=== PATIENT | female | born 1945 | race Caucasian/White ===

== ENCOUNTER 2023-02-08 09:17 | Emergency (ER) | payer MEDICARE, OTHER, SELFPAY ==
[2023-02-08] VITALS (8 sets, daily range): BP systolic 138–170; BP diastolic 65–112; PULSE 67–114; RESP 15–23; TEMP 36.4; O2SAT 94–96
--- NOTE | 2023-02-08 09:30 | DI.RAD_ITS ---
Exam(s) XR CHEST 2V PA LATERAL EXAM: XR CHEST 2V PA LATERAL CLINICAL HISTORY: Cough, URi symptoms TECHNIQUE: 2D digital imaging was performed of the chest. Two images were obtained. PA and lateral views were obtained. COMPARISON: No exams were available for comparison FINDINGS: MEDIASTINUM: Normal. HEART: Normal. PULMONARY VASCULATURE: Normal. LUNGS: There is an ovoid opacity adjacent to the left hilum. The lungs are otherwise clear. PLEURAL SPACE: No pleural effusion or pneumothorax. BONE:Within normal limits for the patient's age. OTHER FINDINGS:Normal. IMPRESSION: 1. Nodular opacity adjacent to the left hilum. Pulmonary nodule/mass cannot be excluded. A CT scan of the chest is recommended for further evaluation. 2. Otherwise unremarkable chest x-ray. DATA REPOSITORY: RADIATION DOSE DELIVERED:
--- NOTE | 2023-02-08 09:30 | RT.EKG_ITS ---
APPROVED REPORT Exam: Resting ECG Reason for Exam: Chest Heaviness Patient Location: E HR:78 bpm ECG Measurements Heart Rate 78 AXIS TX 216 P -29 QRSd 82 QRS 28 QT 402 T 0 QTc 459 Conclusion Sinus rhythm...normal P axis, V-rate 60- 99 Borderline prolonged TX interval...TX >212, V-rate 50- 90 Probable left atrial enlargement...P >50mS, <-0.10mV V1 Borderline repol abnormality, diffuse leads...ST dep, T flat/neg, ant/lat/inf sinus rhyhtm, normal axis, consider inferior lateral ST depressions
--- NOTE | 2023-02-08 09:37 | ED.GENADUL_ITS ---
Discharge Plan Disposition Patient Disposition: Home Condition: Stable Discharge Details Clinical Impression: URI (upper respiratory infection) Primary Care Provider: Unknown,Unknown ED Provider: Christina Leos Home Meds and New Rx's Prescriptions: New doxycycline hyclate 100 mg tablet 100 mg PO BID 5 Days Qty: 10 0RF benzonatate 100 mg capsule 100 mg PO TID PRN (Reason: cough) Qty: 14 0RF Rx Instructions: Take 1 capsule up to 3 times daily as needed for cough No Action simvastatin 10 mg Tablet 10 mg PO Q OTHER DAY candesartan 16 mg Tablet 16 mg PO DAILY Discharge Instructions Instructions: Upper Respiratory Infection (ED) Additional Instructions: Please take the antibiotic as directed with yogurt or a probiotic. The Tessalon Perles as directed. Follow up with primary care provider in 3-5 days. Return to ED sooner if any worsening or concerns. Increase oral fluids. Use your previously prescribed albuterol inhaler as prescribed 1 or 2 puffs 2-3 times a day as needed for wheezing and congestion. Discharge Data Discharge Date/Time-TO BE ENTERED AT DEPARTURE: 02/08/23 12:51 Medical Decision Making 77-year-old female presents to the ER with a chief complaint of URI type symptoms which have been worsening over the last few weeks. She is from out of town staying at [facility]. She reports began with a sinus infection now she is having left lung pain coughing up mucous. She describes it as heaviness. Denies any fever or chills. She reports she is having a hard time sleeping. Feeling more run down every day. Chest x-ray rapid COVID and EKG ordered. Differential diagnosis includes but not limited to URI, COVID, sinusitis, CAD. Patient denies any history of heart problems. No nausea vomiting diaphoresis. EKG was reviewed by Dr. Dereck Mistry and myself ER attending, some artifact noted on the initial EKG repeat ordered. Borderline repolarization abnormality in the diffusely with some minor ST depressions in the anterior lateral and inferior leads. IV and troponins ordered. 0959: Repeat EKG is improved, there is some repolarization and slight ST depressions please see report. Questionable left upper lobe pneumonia on imaging. Official imaging report is pending at this time. Doxycycline 100 mg p.o. ordered. Initial troponin within normal limits. Second troponin canceled due to length of symptoms. Patient states that she had does have a history of breast cancer and had radiation therapy noted to her left side. She is scheduled for a CT in April with her PCP. Questionable pneumonia versus scar tissue. I will treat her with doxycycline to treat empirically for sinusitis and URI type symptoms and Tessalon Perles pending x-ray result. Discussed home care with patient verbalized understanding. Patient discharged in hemodynamically stable condition. This text was generated using [employer] system, please disregard any oddities of phrase or misspellings. 1656: Patient called after discharge, to discuss XR results, She does have a kitchen lead in [place]. I explained to her the results and that a CT is recommended. She verbalized understanding. She will call her kitchen lead tomorrow. A disc of the CXR was requested to be made in DI for patient. Imaging Data Radiologic Study: Imaging: X-Ray Radiologist's impression: EXAM: XR CHEST 2V PA LATERAL CLINICAL HISTORY: Cough, URi symptoms TECHNIQUE: 2D digital imaging was performed of the chest. Two images were obtained. PA and lateral views were obtained. COMPARISON: No exams were available for comparison FINDINGS: MEDIASTINUM: Normal. HEART: Normal. PULMONARY VASCULATURE: Normal. LUNGS: There is an ovoid opacity adjacent to the left hilum. The lungs are otherwise clear. PLEURAL SPACE: No pleural effusion or pneumothorax. BONE:Within normal limits for the patient's age. OTHER FINDINGS:Normal. IMPRESSION: 1. Nodular opacity adjacent to the left hilum. Pulmonary nodule/mass cannot be excluded. A CT scan of the chest is recommended for further evaluation. 2. Otherwise unremarkable chest x-ray. Lab Data Lab results reviewed: Yes I reviewed the patient's lab results. Labs: Laboratory Tests Range/Units 02/08/23 02/08/23 02/08/23 10:10 10:20 12:51 Troponin I (<or=60) ng/L < 50 Cancelled COVID-19 Source Nasal/Nares SARS-CoV-2 (PCR) (Negative) Negative HPI General Mode of arrival: ambulatory . Date/Time Provider Initiated Documentation: 02/08/23 09:19 . Limitations to Documentation: no limitations . Information obtained by: patient and RN notes reviewed . HPI Narrative: 77-year-old female presents to the ER with a chief complaint of URI type symptoms which have been worsening over the last few weeks. She is from out of town staying at [facility]. She reports began with a sinus infection now she is having left lung pain coughing up mucous. She describes it as heaviness. Denies any fever or chills. She reports she is having a hard time sleeping. Feeling more run down every day. Related Data Home Medications Medication Instructions Recorded Confirmed benzonatate 100 mg capsule 100 mg PO TID PRN cough #14 caps 02/08/23 candesartan 16 mg tablet 16 mg PO DAILY 02/08/23 02/08/23 doxycycline hyclate 100 mg tablet 100 mg PO BID 5 days #10 tabs 02/08/23 simvastatin 10 mg tablet 10 mg PO Q OTHER DAY 02/08/23 02/08/23 Previous Rx's Medication Instructions Recorded benzonatate 100 mg capsule 100 mg PO TID PRN cough #14 caps 02/08/23 doxycycline hyclate 100 mg tablet 100 mg PO BID 5 days #10 tabs 02/08/23 Allergies Allergy/AdvReac Type Severity Reaction Status Date / Time latex AdvReac Severe Itching Unverified 02/08/23 09:28 levofloxacin [From Levaquin] AdvReac Severe Hives Unverified 02/08/23 09:28 General Stated Complaint: GenMedical ELIOT: 3 PFSH All Active Problems (Updated 02/08/23 @ 12:31 by Christina Leos NP) URI (upper respiratory infection) (Acute) Social History Smoking/Tobacco Use Status: Never Smoking risk assessment performed?: Yes Alcohol Intake: never Drug use: Never Substance use type: does not use Do you feel safe at home: Yes Do you feel safe in your relationship?: Yes Exam Narrative Exam Narrative: Constitutional: Alert and oriented x3. Appears stated age. Normal body habitus. Head: Normocephalic, no trauma. Eyes: Pupils PERRL, Red reflex noted, EOM's intact. Eyelids symmetrical without lesions, discharge, or swelling. ENT: Bilateral TM's WNL, External ear normal to inspection, no mastoid TTP, swelling, or erythema, Nasal turbinates WNL, no nasal discharge. Normal dentition, Posterior pharynx WNL, no exudate. Chest: RRR, Normal S1, S2, distal pulses intact. Resp: Lungs clear to auscultation bilaterally, no wheezes, rales, or rhonchi. Abdomen: Soft, non-distended, Normoactive bowel sounds all 4 quads. Musculoskeletal: Normal gait, 5/5 strength to all four extremities. Skin: No suspicious rashes or lesions. Capillary refill less than 2 sec. Neurologic: Cranial nerves II-XII intact. Alert and oriented x 3. Motor: No deficits noted. Sensory: Intact bilaterally all 4 extremities. Hematologic/Lymphatic: No ecchymosis, no lymphadenopathy. Course Vital Signs Vital signs: Vital Signs Temperature 36.4 C 02/08/23 09:24 Pulse 92 H 02/08/23 09:24 Respiratory Rate 18 02/08/23 09:24 Blood Pressure 170/65 H 02/08/23 09:24 Pulse Oximetry 96 02/08/23 09:24 Temperature 36.4 C 02/08/23 09:24 Temperature Source Oral 02/08/23 09:24 Pulse 92 H 02/08/23 09:24 Respiratory Rate 18 02/08/23 09:24 Respiratory Effort Normal 02/08/23 09:31 Blood Pressure 170/65 H 02/08/23 09:24 Blood Pressure Position Sitting 02/08/23 09:24 Pulse Oximetry 96 02/08/23 09:24 Oxygen Delivery Method Room Air 02/08/23 09:24 Oxygen Flow Rate 0 02/08/23 09:24 Pain Level 0 02/08/23 09:24
--- NOTE | 2023-02-08 09:45 | RT.EKG_ITS ---
APPROVED REPORT Exam: Resting ECG Reason for Exam: Repeat, Chest heaviness Patient Location: E HR:80 bpm ECG Measurements Heart Rate 80 AXIS AL 205 P -63 QRSd 84 QRS 22 QT 372 T 4 QTc 430 Conclusion Sinus or ectopic atrial rhythm...P axis (-45,135) Probable left atrial enlargement...P >50mS, <-0.10mV V1 normal sinus rhythm, normal axis
[2023-02-08 10:27] LABS: Source Nasal/Nares
--- NOTE | 2023-02-08 10:27 | NUR.NOTE ---
Nursing Note: Pt in bed and comfortable at time of report. Vital signs updated. Pt understands next steps of care. Call light within reach.
[2023-02-08 10:44] LABS: Troponin I < 50 ng/L (<or=60)
[2023-02-08 10:58] LABS: COVID-19 PCR Negative (Negative)
[2023-02-08] MEDS: Benzonatate 100 MG CAP PO ×2 (12:50)
[2023-02-08] MEDS: Doxycycline Hyclate 100 MG CAP PO (12:51)
[2023-02-08] MEDS: Doxycycline Hyclate 100 MG, 2 CAPS/BTL PO (12:51)
== END 2023-02-08 12:51 | disposition home or self-care (01) ==
PROVIDERS: Emergency Provider Registered Nurse Emergency
DX: J06.9 Acute upper respiratory infection, unspecified (principal); R94.31 Abnormal electrocardiogram [ECG] [EKG]; Z20.822 Contact with and (suspected) exposure to COVID-19
CPT/HCPCS: 87635; 93005; 99284; 71046; 84484; 93010; 99283

== ENCOUNTER 2023-02-20 03:03 | Outpatient (CLI) | payer MEDICARE, OTHER, SELFPAY ==
--- NOTE | 2023-02-20 13:35 | DI.CT_ITS ---
Exam(s) CT CHEST WO EXAM: CT CHEST WO CLINICAL HISTORY: LUNG NODULE R91.1 ? [place] MASS, SEE ORDER TECHNIQUE: Imaging Protocol: Axial computed tomography images with coronal and sagittal reformatted images were created and reviewed CONTRAST MATERIAL: Noncontrast COMPARISON: CR XR CHEST 2V PA LATERAL from 02/08/2023 FINDINGS: Pulmonary parenchyma: Discrete mass is identified. There is a which shaved area of consolidation in t he medial lingula. The bronchus to this region of appears occluded. The adjacent bronchus to the late ral segment shows mild bronchiectasis. An additional similar appearing area of atelectasis size noted in the inferior left lower lobe. Bronchiectasis is noted in this region. There are no significant em physematous changes. There are mild peripheral fibrotic changes. Mediastinum and Imelda: No dominant adenopathy or fluid collection. Pleura: No effusion or pneumothorax. Heart: The heart is not dilated. No coronary artery calcifications are seen. Aorta: Thoracic aorta non-dilated. Mild atherosclerotic changes. Upper abdomen: Atrophic pancreas. Bones: Degenerative changes in the spine. Soft tissues: Surgical clips lateral left breast. IMPRESSION: Exam somewhat limited without IV contrast. Areas of atelectasis in the lingula and left lower lobe. This could be secondary to mucous plugging i n areas of bronchiectasis. Bronchoscopy could be considered for further evaluation to exclude an obstructing mass. RADIATION DOSE DELIVERED: 455.57mGy.cm Total DLP DATA REPOSITORY: All CT scans at this facility are submitted to the National Radiology Data Registry (NRDR) Dose Index Registry (DIR) with the [employer] (ACR). RADIATION OPTIMIZATION: All CT scans at this facility use at least one of these dose optimization te chniques: automated exposure control; mA and/or kV adjustment per patient size (includes targeted exa ms where dose is matched to clinical indication); or iterative reconstruction.
== END 2023-02-20 03:23 ==
LOC: DI 03:07
DX: R91.8 Other nonspecific abnormal finding of lung field (principal)
CPT/HCPCS: 71250

== ENCOUNTER 2023-03-05 18:45 | Outpatient (REF) | payer MEDICARE, OTHER, SELFPAY | END 2023-03-05 18:46 | disposition home or self-care (01) | LOC: LBN 18:45 | PROVIDERS: Visit Provider Nurse Practitioner Family | DX: N30.01 Acute cystitis with hematuria (principal); R82.79 Other abnormal findings on microbiological examination of urine | CPT/HCPCS: 87077; 87086; 87186 ==

== ENCOUNTER 2023-03-13 21:24 | Outpatient (REF) | payer MEDICARE, OTHER, SELFPAY ==
[2023-03-13 22:15] LABS: Bacteria Negative HPF (Negative); C & S Indicated? C&S Done As Ordered; Crystals Negative HPF (Negative); Epithelial Cells Rare HPF (Negative); Mucus Negative (Negative); WBC 20-50 HPF (0-5)
== END 2023-03-13 21:25 | disposition home or self-care (01) ==
LOC: LBN 21:24
PROVIDERS: Visit Provider Nurse Practitioner Family
DX: R30.0 Dysuria (principal)
CPT/HCPCS: 81015; 87086

== ENCOUNTER 2024-03-29 10:08 | Emergency (ER) | payer MEDICARE, OTHER, SELFPAY ==
--- NOTE | 2024-03-29 10:15 | DI.RAD_ITS ---
Exam(s) XR CHEST 2V PA LATERAL EXAM: XR CHEST 2V PA LATERAL CLINICAL HISTORY: URI symptoms TECHNIQUE: 2D digital imaging was performed of the chest. Two images were obtained. PA and lateral views were obtained. COMPARISON: CR XR CHEST 2V PA LATERAL from 02/08/2023 FINDINGS: MEDIASTINUM: Normal. HEART: Normal. PULMONARY VASCULATURE: Normal. LUNGS: No focal consolidation. PLEURAL SPACE: No pleural effusion or pneumothorax. BONE:Within normal limits for the patient's age. OTHER FINDINGS:Normal. IMPRESSION: No acute pulmonary findings. DATA REPOSITORY: RADIATION DOSE DELIVERED:
[2024-03-29 10:16] VITALS: BP 116/82; PULSE 106; RESP 16; TEMP 37.2; O2SAT 94
--- NOTE | 2024-03-29 10:33 | ED.GENADUL_ITS ---
Discharge Plan Disposition Patient Disposition: Home Condition: Stable Discharge Details Clinical Impression: Cough Primary Care Provider: Natasha,Local ED Provider: Christina Leos Home Meds and New Rx's Prescriptions: Continued simvastatin 10 mg Tablet 10 mg PO Q OTHER DAY candesartan 16 mg Tablet 16 mg PO DAILY benzonatate 100 mg capsule 100 mg PO TID PRN (Reason: cough) Qty: 14 0RF Rx Instructions: Take 1 capsule up to 3 times daily as needed for cough Discharge Instructions Instructions: Cough, Adult ED, Upper respiratory infection in adults - Discharge instructions Additional Instructions: No evidence of pneumonia on the chest x-ray. COVID flu and RSV is negative at this time. Please take Tessalon Perles as directed. Follow up with primary care provider in 3-5 days. Return to ED sooner if any worsening or concerns. Please take Tylenol or Ibuprofen with food every 4-6 hours as needed for pain and swelling. Referrals: Primary Care Provider [Outside] - 5 days HPI General Mode of arrival: ambulatory . Date/Time Provider Initiated Documentation: 03/29/24 10:13 . Limitations to Documentation: no limitations . Information obtained by: patient, RN notes reviewed and old records reviewed . HPI Narrative: 78-year-old female presents to the ER with a chief complaint of runny nose, head pressure and chest congestion. Reports a nonproductive cough. There has been was recently diagnosed with pneumonia and she is here to be evaluated for the same. She is speaking in full sentences, no increased work of breathing. Vital signs are within normal limits. She does have a past medical history of high cholesterol. Related Data Home Medications ?Medication ?Instructions ?Recorded ?Confirmed benzonatate 100 mg capsule 100 mg PO TID PRN cough #14 caps 02/08/23 candesartan 16 mg tablet 16 mg PO DAILY 02/08/23 02/08/23 simvastatin 10 mg tablet 10 mg PO Q OTHER DAY 02/08/23 02/08/23 Previous Rx's ?Medication ?Instructions ?Recorded benzonatate 100 mg capsule 100 mg PO TID PRN cough #14 caps 02/08/23 Allergies Allergy/AdvReac Type Severity Reaction Status Date / Time latex AdvReac Severe Itching Unverified 02/08/23 09:28 levofloxacin (From Levaquin) AdvReac Severe Hives Unverified 02/08/23 09:28 General Stated Complaint: RespSymp ELIOT: 3 Review of Systems All systems reviewed & are unremarkable except as noted in HPI and below Constitutional Constitutional: Reports headache(s) ENT Ears, Nose, Mouth, and Throat: Reports headache(s) Respiratory Respiratory: Reports as per HPI, Reports chest congestion and Reports cough Neurologic Neurologic: Reports headache(s) Exam Narrative Exam Narrative: Constitutional: Alert and oriented x3. Appears stated age. Normal body habitus. Head: Normocephalic, no trauma. Eyes: Pupils PERRL, Red reflex noted, EOM's intact. Eyelids symmetrical without lesions, discharge, or swelling. ENT: Bilateral TM's WNL, External ear normal to inspection, no mastoid TTP, swelling, or erythema, Nasal turbinates WNL, no nasal discharge. Normal dentition, Posterior pharynx WNL, no exudate. Chest: RRR, Normal S1, S2, distal pulses intact. Resp: Lungs clear to auscultation bilaterally, no wheezes, rales, or rhonchi. Abdomen: Soft, non-distended, Normoactive bowel sounds all 4 quads. Musculoskeletal: Normal gait, Moves all 4 extremities without difficulty. Skin: No suspicious rashes or lesions. Capillary refill less than 2 sec. Neurologic: Cranial nerves II-XII intact. Alert and oriented x 3. Motor: No deficits noted. Sensory: Intact bilaterally all 4 extremities. Hematologic/Lymphatic: No ecchymosis, no lymphadenopathy. Course Vital Signs Vital signs: Vital Signs Temperature 37.2 C 03/29/24 10:16 Pulse 106 H 03/29/24 10:16 Respiratory Rate 16 03/29/24 10:16 Blood Pressure 116/82 03/29/24 10:16 Pulse Oximetry 94 03/29/24 10:16 Temperature 37.2 C 03/29/24 10:16 Temperature Source Tympanic 03/29/24 10:16 Pulse 106 H 03/29/24 10:16 Respiratory Rate 16 03/29/24 10:16 Respiratory Effort Normal 03/29/24 10:18 Blood Pressure 116/82 03/29/24 10:16 Pulse Oximetry 94 03/29/24 10:16 Pain Level 0 03/29/24 10:16 Medical Decision Making 78-year-old female presents to the ER with a chief complaint of runny nose, head pressure and chest congestion. Reports a nonproductive cough. There has been was recently diagnosed with pneumonia and she is here to be evaluated for the same. She is speaking in full sentences, no increased work of breathing. Vital signs are within normal limits. She does have a past medical history of high cholesterol. Differential diagnose includes not limited to pneumonia, viral illness, influenza, COVID, seasonal allergies. Fluid swab ordered, chest x-ray. Negative Covid, Flu, RSV. XRAY negative. Patient to be discharged home with Jethro Hooks. Will instruct follow-up care for reevaluation at a later date by PCP. Patient remained hemodynamically stable throughout the remainder of her stay. This text was generated using [employer] dictation system, please disregard any oddities of phrase or misspellings. Medical Records Medical records reviewed: Yes I reviewed the patient's medical records. Imaging Data Radiologic Study: Imaging: X-Ray Radiologist's impression: FINDINGS: Lungs: Lingular scarring. No acute consolidation Pleural spaces: Unremarkable. No pleural effusion. No pneumothorax. Heart/Mediastinum: Unremarkable. No cardiomegaly. Bones/joints: Unremarkable. Soft tissues: Surgical clips left breast. Calcification right breast IMPRESSION: No evidence of acute process Thank you for allowing us to participate in the care of your patient. Dictated and Authenticated by: Almita Marroquin MD Quality:SDOH Health Related Social Needs: No Data to Display [facility] All Active Problems (Updated 03/29/24 @ 11:57 by Christina Leos NP) Cough (Acute) Social History Smoking/Tobacco Use Status: Never Smoking risk assessment performed?: Yes Alcohol Intake: never Drug use: Never Substance use type: does not use Do you feel safe at home: Yes Do you feel safe in your relationship?: Yes
[2024-03-29 11:17] LABS: COVID-19 PCR Negative (Negative); Influenza A PCR Negative (Negative); Influenza B PCR Negative (Negative); RSV PCR Negative (Negative); Source Nasopharynx
--- NOTE | 2024-03-29 11:52 | DI.VRAD_ITS ---
PROCEDURE INFORMATION: Exam: XR Chest Exam date and time: 03/29/2024 11:26 AM Age: 78 years old Clinical indication: Other: Uri symptoms TECHNIQUE: Imaging protocol: Radiologic exam of the chest. Views: 2 views. COMPARISON: CT CHEST WO 02/20/2023 1:29 PM FINDINGS: Lungs: Lingular scarring. No acute consolidation Pleural spaces: Unremarkable. No pleural effusion. No pneumothorax. Heart/Mediastinum: Unremarkable. No cardiomegaly. Bones/joints: Unremarkable. Soft tissues: Surgical clips left breast. Calcification right breast IMPRESSION: No evidence of acute process Dictated and Authenticated by: Almita Marroquin MD. Ordering:JARETT Vasquez MD
[2024-03-29] MEDS: Benzonatate 100 MG CAP PO ×2 (12:40)
== END 2024-03-29 12:27 | disposition home or self-care (01) ==
PROVIDERS: Emergency Provider Registered Nurse Emergency
DX: R05.1 Acute cough (principal)
CPT/HCPCS: 87637; 99283; 71046